=== PATIENT | male | born 1980 | race Two or more races ===

== ENCOUNTER 2016-10-15 21:44 | Emergency (ER) | payer OTHER ==
[~2016-10-15] VITALS: Ht 172.7 cm; Wt 79.4 kg
--- NOTE | 2016-10-15 22:20 | NUR ---
TO BED 8 A 36 YO MALE PATIEN IN CUSTODY FOR DRUG POSSESSION HERE FOR "SOB/CP X2 DAYS." PATIENT IS AAOX4, AMBULATORY, NAD NOTED, VSS, NONDIAPHORETIC. COMFORT MEASURES RENDERED. AWAITNG FOR ER MD ORELLANA.
--- NOTE | 2016-10-16 00:48 | NUR ---
VSS. Patient discharged to police custody in stable condition. Written and verbal after care instructions given. Patient verbalizes understanding of instruction. Patient is ambulatory with steady gait, no further complaints.
[2016-10-16 00:50] VITALS: BP 120/74
== END 2016-10-16 00:51 ==
LOC: ER 21:48
DX: Z02.89 Encounter for other administrative examinations (principal); E11.9 Type 2 diabetes mellitus without complications; Z79.4 Long term (current) use of insulin; F17.200 Nicotine dependence, unspecified, uncomplicated
CPT/HCPCS: 71010; 82962 ×2; 93005; 99284; A4606; Z7610